=== PATIENT | female | born 1945 | race African-American/Black ===

== ENCOUNTER → 2019-09-05 | Outpatient (CLI) | payer MEDICARE ==
--- NOTE | 2019-09-05 15:20 | KCIC ---
MRI study of the left knee without contrast Clinical indications: New onset of anterior left knee pain after recent 2 mild walk. Swelling. TECHNIQUE: Noncontrast MRI sequences of the left knee were performed in all 3 planes. COMPARISON: Radiographic study of the left knee dated May 26, 2017. FINDINGS: The anterior and posterior cruciate ligaments are intact. There is diffuse thickening and increased signal of the anterior cruciate ligament which may be seen with mucinous degeneration. The quadriceps and patellar tendons are intact. There is degenerative irregularity of the inner articular edge of the posterior horn the medial meniscus at the attachment to the root ligament. The root ligament appears intact. There is an inferior articular surface tear of the body of the medial meniscus. No articular surface tear of the lateral meniscus is seen. There is edema around the medial collateral ligament. The medial collateral ligament is intact otherwise and no meniscocapsular separation is seen. There is adjacent stress reaction bone marrow edema of the medial femoral condyle and medial tibial plateau. This is secondary to severe chondromalacia with loss of articular cartilage of this portion of the joint space. There is mild degenerative spurring of the medial tibiofemoral joint compartment. There is a degenerative cyst of the medial femoral condyle. Therefore, the medial collateral ligament edema could be secondary to enthesopathy or grade 1 ligament sprain if there is a history of a recent injury. In addition, there is severe chondromalacia and moderate subchondral cyst formation of the posterior nonweightbearing portion of the medial femoral condyle. There is mild chondromalacia without articular cartilage defect of the lateral tibiofemoral joint compartment. The lateral collateral ligament complex and iliotibial band and popliteus tendon are intact. No posterior lateral corner injury is seen. No fracture or marrow infiltrative process is seen. The patella is mildly subluxed laterally. There is focal severe chondromalacia patellae with focal thinning of the medial patellar facet articular cartilage and mild subchondral bone marrow edema. This extends to the apex. There is moderate trochlear chondromalacia as well. There is mild degenerative spurring of the patellofemoral joint compartment. The medial and lateral retinacular ligaments are intact. Small knee joint effusion is seen. No loose osteochondral body is evident. No Mercer's cyst is seen. No muscle edema is evident. IMPRESSION: Tear of the medial meniscus. 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 Mild chondromalacia of the lateral tibiofemoral joint compartment. No lateral meniscal tear. 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 Mild lateral subluxation of the patella. Medial collateral ligament edema which may be secondary to enthesopathy or grade 1 medial collateral ligament sprain if there is a history of recent injury. Electronically signed by: Arturo Howard MD (09/05/2019 3:17 PM) [id number]
== END | disposition home or self-care (01) ==
LOC: KCIC MRI 10:48
PROVIDERS: ATTEND Orthopaedic Surgery
DX: S83.242A Other tear of medial meniscus, current injury, left knee, initial encounter (principal); S83.282A Other tear of lateral meniscus, current injury, left knee, initial encounter; S83.012A Lateral subluxation of left patella, initial encounter; M94.262 Chondromalacia, left knee; M25.462 Effusion, left knee; X58.XXXA Exposure to other specified factors, initial encounter; Y93.89 Activity, other specified; Y92.89 Other specified places as the place of occurrence of the external cause; Y99.8 Other external cause status
CPT/HCPCS: 73721

== ENCOUNTER → 2019-09-10 | Outpatient (CLI) | payer MEDICARE ==
--- NOTE | 2019-09-10 12:47 | RAD ---
EXAM: Left axillary ultrasound. HISTORY: Palpable nodule left axilla. COMPARISON: None. FINDINGS: Sonographic evaluation of the left axilla was performed. There is no suspicious sonographic correlate for the palpable focus. Only normal-appearing vessels are seen at this site. There is no mass or lymphadenopathy. IMPRESSION: 1. No sonographic correlate for a palpable focus. Recommend ongoing clinical follow-up of palpable findings. Electronically signed by: Milagros Menezes MD (09/10/2019 12:45 PM) [facility]
== END | disposition home or self-care (01) ==
LOC: US 11:13
PROVIDERS: ATTEND Nurse Practitioner Family
DX: M79.89 Other specified soft tissue disorders (principal)
CPT/HCPCS: 76881